=== PATIENT | female | born 1995 ===

== ENCOUNTER 2018-03-13 13:53 | Emergency (ER) | payer MEDICAID ==
[~2018-03-13] VITALS: Ht 162.6 cm; Wt 61.2 kg
[~2018-03-13 13:53] MED LIST: AMOCLA875 PO; ANTOXYBENA BOTHEARS; Amoxicillin500 MG PO; IBUP800 PO; Percocet 5-3251 EACH PO; Verotin-Gr Cap1 EACH PO
[2018-03-13] MEDS ORDERED: IBUP400 PO (14:33)
[2018-03-13] MEDS ORDERED: Zovirax400 MG PO (14:33)
== END 2018-03-13 15:01 | disposition home or self-care (01) ==
LOC: ER 13:53
DX: R10.2 Pelvic and perineal pain (principal); F17.210 Nicotine dependence, cigarettes, uncomplicated
CPT/HCPCS: 87529; 99284

== ENCOUNTER 2018-10-18 07:54 | Emergency (ER) | payer OTHER ==
[~2018-10-18] VITALS: Ht 160 cm; Wt 54.4 kg
[~2018-10-18 07:54] MED LIST changes: +IBUP400 PO; +Zovirax400 MG PO
[2018-10-18 08:55] LABS: Source, Urine Clean Catch
[2018-10-18 09:10] LABS: Appearance, Urine Clear (Clear); Bilirubin, Urine Neg (Neg); Blood, Urine 1+ (Neg); Color, Urine Yellow (P-Yellow); Glucose Qualitative, Urine Neg (Neg); Ketones, Urine Neg (Neg); Leukocyte Esterase, Urine 1+ (Neg); Nitrite, Urine Neg (Neg); Protein, Urine Neg (Neg); Urobilinogen, Urine 1+ (Normal)
[2018-10-18 09:40] LABS: Amorphous Light (0-Heavy); Bacteria Mod /hpf; Squamous Epithelial Cells Many /hpf (Few); White Blood Cells, Urine 0-2 /hpf (0-5)
[2018-10-18 10:25] LABS: BASOPHILS ABSOLUTE AUTO 0.07 K/mm3 (0.00-0.23); BASOPHILS PERCENT AUTO 1 % (0-2); EOSINOPHILS PERCENT AUTO 4 % (0-6); Hematocrit 39.4 % (33.0-51.0); Hemoglobin 13.2 g/dL (11.5-16.0); IMMATURE GRAN ABSOLUTE AUTO 0.03 K/mm3 (0.00-0.10); IMMATURE GRAN PERCENT AUTO 0 % (0-1); LYMPHOCYTES ABSOLUTE AUTO 1.86 K/mm3 (0.84-5.20); LYMPHOCYTES PERCENT AUTO 17 % (21-46); MONOCYTES ABSOLUTE AUTO 0.46 K/mm3 (0.16-1.47); MONOCYTES PERCENT AUTO 4 % (4-13); Mean Corpuscular HGB 31.7 pg (26.0-34.0); Mean Corpuscular HGB Conc 33.5 g/dL (31.5-36.5); Mean Corpuscular Volume 95 fL (80-100); Mean Platelet Volume 10.5 fL (9.1-12.4); NEUTROPHILS ABSOLUTE AUTO 8.05 K/mm3 (1.96-9.15); NEUTROPHILS PERCENT AUTO 74 % (41-73); Platelet Count 238 K/mm3 (150-400); RDW Coefficient Variation 12.2 % (11.7-14.2); RDW Standard Deviation 42.4 fL (35.1-46.3); Red Blood Cell Count 4.16 M/mm3 (3.80-5.20); White Blood Cell Count 10.87 K/mm3 (4.00-11.30)
[2018-10-18 10:47] LABS: Alanine Aminotransfer (ALT/SGP 15 U/L (12-78); Albumin, Blood 3.8 g/dL (3.4-5.0); Alk Phos 83 U/L (50-136); Anion Gap 4 mmol/L (6-16); Aspartate Aminotrans (AST/SGOT 16 U/L (12-37); Bilirubin, Total 0.4 mg/dL (0.1-1.0); Blood Urea Nitrogen 15 mg/dL (8-24); Bun/Creatinine Ratio 20.6 (12.0-20.0); CO2, Blood 26 mmol/L (21-32); Calcium, Blood 8.8 mg/dL (8.5-10.1); Chloride, Blood 109 mmol/L (98-108); Creatinine, Blood 0.73 mg/dL (0.40-1.00); Globulin, Blood 3.9 g/dL (2.2-4.0); Glomerular Filtration Rate >60 (60-); Glucose, Blood 91 mg/dL (70-99); Potassium, Blood 4.4 mmol/L (3.5-5.5); Sodium, Blood 139 mmol/L (136-145); Total Protein, Blood 7.7 g/dL (6.4-8.2)
[2018-10-18] MEDS ORDERED: ONDA4ODT MM (11:37)
[2018-10-18] MEDS ORDERED: IBUP600 PO (11:37)
== END 2018-10-18 12:25 | disposition home or self-care (01) ==
LOC: ER 07:54
PROVIDERS: Internal Medicine; Physician Assistant
DX: N83.12 Corpus luteum cyst of left ovary (principal); F17.210 Nicotine dependence, cigarettes, uncomplicated
CPT/HCPCS: 36415; 74177; 76830; 76856; 80053; 81001; 81025; 83690; 85025; 87086; 96374; 96375; 99284-25; J1885; J2405; Q9967

== ENCOUNTER 2019-07-27 04:26 | Inpatient (IN) | payer OTHER ==
[~2019-07-27] VITALS: Ht 160 cm; Wt 66.8 kg
[~2019-07-27 04:26] MED LIST changes: +IBUP600 PO; +ONDA4ODT MM
[2019-07-27] MEDS ORDERED: PRENATAL TABLE1 EAC2 PO (05:10)
[2019-07-27] MEDS ORDERED: FERSU300 PO (05:11)
[2019-07-27 05:22] LABS: BASOPHILS ABSOLUTE AUTO 0.04 K/mm3 (0.00-0.23); BASOPHILS PERCENT AUTO 0 % (0-2); EOSINOPHILS ABSOLUTE AUTO 0.17 K/mm3 (0.00-0.68); EOSINOPHILS PERCENT AUTO 1 % (0-6); Hematocrit 31.7 % (33.0-51.0); Hemoglobin 10.9 g/dL (11.5-16.0); IMMATURE GRAN ABSOLUTE AUTO 0.11 K/mm3 (0.00-0.10); IMMATURE GRAN PERCENT AUTO 1 % (0-1); LYMPHOCYTES ABSOLUTE AUTO 1.93 K/mm3 (0.84-5.20); LYMPHOCYTES PERCENT AUTO 13 % (21-46); MONOCYTES ABSOLUTE AUTO 0.76 K/mm3 (0.16-1.47); MONOCYTES PERCENT AUTO 5 % (4-13); Mean Corpuscular HGB 32.2 pg (26.0-34.0); Mean Corpuscular HGB Conc 34.4 g/dL (31.5-36.5); Mean Corpuscular Volume 94 fL (80-100); Mean Platelet Volume 11.4 fL (9.1-12.4); NEUTROPHILS ABSOLUTE AUTO 11.38 K/mm3 (1.96-9.15); NEUTROPHILS PERCENT AUTO 79 % (41-73); Platelet Count 200 K/mm3 (150-400); RDW Coefficient Variation 12.6 % (11.7-14.2); RDW Standard Deviation 43.5 fL (35.1-46.3); Red Blood Cell Count 3.38 M/mm3 (3.80-5.20); White Blood Cell Count 14.39 K/mm3 (4.00-11.30)
[2019-07-28 05:02] LABS: BASOPHILS ABSOLUTE AUTO 0.04 K/mm3 (0.00-0.23); BASOPHILS PERCENT AUTO 0 % (0-2); EOSINOPHILS ABSOLUTE AUTO 0.14 K/mm3 (0.00-0.68); EOSINOPHILS PERCENT AUTO 1 % (0-6); Hematocrit 24.9 % (33.0-51.0); Hemoglobin 8.5 g/dL (11.5-16.0); IMMATURE GRAN ABSOLUTE AUTO 0.04 K/mm3 (0.00-0.10); IMMATURE GRAN PERCENT AUTO 0 % (0-1); LYMPHOCYTES ABSOLUTE AUTO 1.93 K/mm3 (0.84-5.20); LYMPHOCYTES PERCENT AUTO 17 % (21-46); MONOCYTES ABSOLUTE AUTO 0.64 K/mm3 (0.16-1.47); MONOCYTES PERCENT AUTO 6 % (4-13); Mean Corpuscular HGB 33.1 pg (26.0-34.0); Mean Corpuscular HGB Conc 34.1 g/dL (31.5-36.5); Mean Platelet Volume 11.3 fL (9.1-12.4); NEUTROPHILS ABSOLUTE AUTO 8.84 K/mm3 (1.96-9.15); NEUTROPHILS PERCENT AUTO 76 % (41-73); Platelet Count 150 K/mm3 (150-400); RDW Coefficient Variation 12.8 % (11.7-14.2); RDW Standard Deviation 44.6 fL (35.1-46.3); Red Blood Cell Count 2.57 M/mm3 (3.80-5.20); White Blood Cell Count 11.63 K/mm3 (4.00-11.30)
[2019-07-28 05:09] LABS: Mean Corpuscular Volume 97 fL (80-100)
--- NOTE | 2019-07-28 09:32 | NUR ---
DISCHARGE INSTRUCTIONS REVIEWED AND SIGNED. QUESTIONS ANSWERED. BANDS MATCHED.
== END 2019-07-28 09:40 | disposition home or self-care (01) | DRG 807 ==
LOC: OBS 04:26 → BC 04:27 → OBS 04:57 → BC 04:58
PROVIDERS: ADMIT Nurse Practitioner Obstetrics & Gynecology
PROC: 10E0XZZ Delivery of Products of Conception, External Approach (ICD-10-PCS; principal; 2019-07-27)
DX: O99.334 Smoking (tobacco) complicating childbirth (principal); Z37.0 Single live birth; F17.200 Nicotine dependence, unspecified, uncomplicated; Z3A.37 37 weeks gestation of pregnancy
CPT/HCPCS: 36415; 85025; J1885; J7120

== ENCOUNTER 2023-08-04 07:53 | Inpatient (IN) | payer OTHER ==
[2023-08-04] VITALS (19 sets, daily range): BP systolic 105–177; BP diastolic 55–89
[~2023-08-04 07:53] MED LIST changes: +FERSU300 PO; +PRENATAL TABLE1 EAC2 PO
[2023-08-04 08:29] LABS: BASOPHILS ABSOLUTE AUTO 0.06 K/mm3 (0.00-0.23); BASOPHILS PERCENT AUTO 0 % (0-2); EOSINOPHILS ABSOLUTE AUTO 0.14 K/mm3 (0.00-0.68); EOSINOPHILS PERCENT AUTO 1 % (0-6); Hematocrit 33.4 % (33.0-51.0); Hemoglobin 11.9 g/dL (11.5-16.0); IMMATURE GRAN ABSOLUTE AUTO 0.11 K/mm3 (0.00-0.10); IMMATURE GRAN PERCENT AUTO 1 % (0-1); LYMPHOCYTES ABSOLUTE AUTO 1.58 K/mm3 (0.84-5.20); LYMPHOCYTES PERCENT AUTO 10 % (21-46); MONOCYTES PERCENT AUTO 5 % (4-13); Mean Corpuscular HGB 33.1 pg (26.0-34.0); Mean Corpuscular HGB Conc 35.6 g/dL (31.5-36.5); Mean Corpuscular Volume 93 fL (80-100); Mean Platelet Volume 11.8 fL (9.1-12.4); NEUTROPHILS ABSOLUTE AUTO 12.84 K/mm3 (1.96-9.15); NEUTROPHILS PERCENT AUTO 83 % (41-73); Platelet Count 167 K/mm3 (150-400); RDW Coefficient Variation 12.5 % (11.7-14.2); RDW Standard Deviation 42.3 fL (35.1-46.3); White Blood Cell Count 15.43 K/mm3 (4.00-11.30)
--- NOTE | 2023-08-04 11:50 | NUR ---
PT HAD 2 ELEVATED BP OCCUR DURING EPIDURAL PLACEMENT WHILE THE BP CUFF WAS NOT ON CORRECTLY
[2023-08-05 05:15] VITALS: BP 105/61
[2023-08-05 07:00] LABS: Hematocrit 27.6 % (33.0-51.0); Hemoglobin 9.6 g/dL (11.5-16.0); Mean Corpuscular HGB 33.1 pg (26.0-34.0); Mean Corpuscular HGB Conc 34.8 g/dL (31.5-36.5); Mean Corpuscular Volume 95 fL (80-100); Platelet Count 162 K/mm3 (150-400); RDW Coefficient Variation 12.5 % (11.7-14.2); White Blood Cell Count 13.57 K/mm3 (4.00-11.30)
[2023-08-05 08:20] VITALS: BP 132/61
[2023-08-05 11:40] VITALS: BP 123/65
--- NOTE | 2023-08-05 13:06 | NUR ---
DC HOME WITH BABY, BANDS HAVE BEEN MATCH FOR A WHILE, PT WAS SUPPOSE TO USE CALL LIGHT WHEN BABY IN [place], BUT WAS UNSURE, RN WHEN TO CHECK ROOM AND PT AND FAMILY WERE STILL WAITING FOR SOMEONE TO WALK THEM UP. WAS A COMMUNICATION ERROR. ENCORUAGED FOR PT TO CALL WITH QUESTIONS, TO RETURN 11-24 FOR PPFU WITH BABY
== END 2023-08-05 12:55 | disposition home or self-care (01) | DRG 807 ==
LOC: OBS 07:53 → BC 07:55 → OBS 08:03 → BC 08:05
PROVIDERS: ADMIT Advanced Practice Midwife
PROC: 10E0XZZ Delivery of Products of Conception, External Approach (ICD-10-PCS; principal; 2023-08-04)
DX: O99.324 Drug use complicating childbirth (principal); Z37.0 Single live birth; F12.90 Cannabis use, unspecified, uncomplicated; O48.0 Post-term pregnancy; Z3A.41 41 weeks gestation of pregnancy; O69.1XX0 Labor and delivery complicated by cord around neck, with compression, not applicable or unspecified
CPT/HCPCS: 36415; 85025; 85027; 86850; 86900; 86901; A9270

== ENCOUNTER 2023-10-29 10:08 | Day surgery (SDC) | payer OTHER ==
[~2023-10-29] VITALS: Ht 160 cm; Wt 64.7 kg
[~2023-10-29 10:08] MED LIST changes: +FentaNYL Citrate 50 MCG/ML 2 ML Injection ONE; +Lactated Ringer's 1,000 ML IV ONE; +Midazolam HCl 1MG / ML 2ML Vial ONE; +Rocuronium Bromide 10 MG/ML 5ML Injection IV ONE; +Ropivacaine 0.5% HCl/Pf 5 MG/ML 20ML VIAL ONE; +propofoL 20 ML IV ONE
[2023-10-29] MEDS ORDERED: ALBU90OI INH (10:36)
[2023-10-29] MEDS ORDERED: ALBU90OI (10:36)
[2023-10-29] MEDS ORDERED: Ondansetron HCl 2 MG / ML 2ML Vial ONE (10:45)
[2023-10-29] MEDS ORDERED: Ketorolac Tromethamine 30mg Vial ONE (10:45)
[2023-10-29] MEDS ORDERED: Dexamethasone Sod Phos 10 MG/ML 1ML VIAL ONE (10:45)
[2023-10-29] MEDS ORDERED: Ipratropium/Albuterol SulF 2.5-0.5MG/3 ML Amp ONE (10:55)
[2023-10-29] MEDS ORDERED: NS 50 ML IV ONE ×2 (10:59→11:05)
[2023-10-29] MEDS ORDERED: CeFAZolin Sodium 2,000 MG VIAL ONE ×2 (10:59→11:06)
--- NOTE | 2023-10-29 11:03 | NUR ---
10/29/23 1103 Genet Mercado PT REPORTS COUGH FOR THE LAST 2-3 MONTHS AGO AND SORE THROAT ABOUT A MONTH AGO. DID NOT EVER REALLY FEEL LIKE SHE WAS SICK, JUST DEVELOPED COUGH. SHE HAS ASTHMA AND USES ALBUTEROL INHALER NEEDED. ALSO "DABS". DENIES FEVER, SOB, TROUBLE BREATHING. CHARGE NURSE JST DID COVID TEST AND COVID TEST WAS NEGATIVE. PT HAS WHEEZING T/O LUNGS. MUKESH DAVILA SPOKE TO DR HOLLOWAY AND ADVISED OF COUGH, WHEEZING, NEGATIVE COVID TEST AND SPO2 BETWEEN 93-96%. PER DR AMIE GENTILE GIVEN.
[2023-10-29] MEDS ORDERED: Lactated Ringer's 1,000 ML IV ONE (11:05)
[2023-10-29] MEDS ORDERED: EPINEPhrine HCl 1 MG/ML 1ML Amp XX ONE (11:40)
[2023-10-29] MEDS ORDERED: SuccINYLCHOLINE Chloride 100 MG/5 ML 5MLSYR ONE (11:49)
[2023-10-29] MEDS ORDERED: Glycopyrrolate 0.2 MG/ML 5ML VIAL ONE (12:03)
[2023-10-29] MEDS ORDERED: Neostigmine Methylsulfate 5MG/5ML SYR ONE (12:03)
[2023-10-29 12:50] VITALS: BP 94/64
== END 2023-10-29 13:17 | disposition home or self-care (01) ==
LOC: ORSCSDS 10:08
PROVIDERS: Obstetrics & Gynecology
PROC: 0UT74ZZ Resection of Bilateral Fallopian Tubes, Percutaneous Endoscopic Approach (ICD-10-PCS; principal; 2023-10-29 11:30)
DX: Z30.2 Encounter for sterilization (principal); J45.909 Unspecified asthma, uncomplicated; Z79.899 Other long term (current) drug therapy; Z87.891 Personal history of nicotine dependence
CPT/HCPCS: 88302; J0171; J0330; J0690; J1100; J1885; J2250; J2405; J2704; J2710; J2795; J3010; J7120